=== PATIENT | female | born 1990 | race Two or more races ===

== ENCOUNTER 2022-09-21 12:39 | Outpatient (CLI) | payer OTHER | END 2022-09-21 13:45 | disposition home or self-care (01) | LOC: PRENATAL 12:39 | PROVIDERS: ATTEND Obstetrics & Gynecology Maternal & Fetal Medicine | DX: O36.80X0 Pregnancy with inconclusive fetal viability, not applicable or unspecified (principal); Z36 Encounter for antenatal screening of mother; Z3A.13 13 weeks gestation of pregnancy ==

== ENCOUNTER 2022-11-30 14:30 | Outpatient (CLI) | payer OTHER | END 2022-11-30 16:25 | disposition home or self-care (01) | LOC: PRENATAL 14:30 | PROVIDERS: ATTEND Obstetrics & Gynecology Maternal & Fetal Medicine | DX: O35.9XX0 Maternal care for (suspected) fetal abnormality and damage, unspecified, not applicable or unspecified (principal); O35.3XX0 Maternal care for (suspected) damage to fetus from viral disease in mother, not applicable or unspecified; Z3A.23 23 weeks gestation of pregnancy ==

== ENCOUNTER 2023-02-01 14:17 | Outpatient (CLI) | payer OTHER | END 2023-02-01 15:20 | disposition home or self-care (01) | LOC: PRENATAL 14:17 | PROVIDERS: ATTEND Obstetrics & Gynecology Maternal & Fetal Medicine | DX: O26.849 Uterine size-date discrepancy, unspecified trimester (principal); O36.8199 Decreased fetal movements, unspecified trimester, other fetus; Z3A.32 32 weeks gestation of pregnancy ==

== ENCOUNTER 2023-03-07 14:15 | Inpatient (IN) | payer OTHER ==
[~2023-03-07] VITALS: Ht 162.6 cm; Wt 3.2 kg
[2023-03-07] MEDS ORDERED: PRENATAL TABLE1 EAC1 PO (15:43)
[2023-03-12] MEDS ORDERED: IBU800 MG PO (12:51)
[2023-03-12] MEDS ORDERED: SURFAK240 M1 PO (12:51)
== END 2023-03-12 13:30 | disposition home or self-care (01) | DRG 787 ==
LOC: OBS/DEL 14:15 → LDR 03-08 09:41 → O/R 03-09 12:35 → OB/GYN 03-09 14:12
PROVIDERS: Obstetrics & Gynecology; ADMIT Student in an Organized Health Care Education/Training Program; ATTEND Student in an Organized Health Care Education/Training Program
PROC: 3E0P7VZ Introduction of Hormone into Female Reproductive, Via Natural or Artificial Opening (ICD-10-PCS; 2023-03-08)
PROC: 4A1HXCZ Monitoring of Products of Conception, Cardiac Rate, External Approach (ICD-10-PCS; 2023-03-08)
PROC: 3E033VJ Introduction of Other Hormone into Peripheral Vein, Percutaneous Approach (ICD-10-PCS; 2023-03-09)
PROC: 10D00Z1 Extraction of Products of Conception, Low, Open Approach (ICD-10-PCS; principal; 2023-03-09 11:00)
DX: O69.0XX0 Labor and delivery complicated by prolapse of cord, not applicable or unspecified (principal); O41.03X0 Oligohydramnios, third trimester, not applicable or unspecified; Z3A.37 37 weeks gestation of pregnancy; Z37.0 Single live birth; Z20.822 Contact with and (suspected) exposure to COVID-19

== ENCOUNTER 2023-09-10 08:17 | Outpatient (CLI) | payer OTHER ==
[~2023-09-10 08:17] MED LIST: IBU800 MG PO; PRENATAL TABLE1 EAC1 PO; SURFAK240 M1 PO
== END 2023-09-10 08:18 | disposition home or self-care (01) ==
LOC: PRENATAL 08:17
PROVIDERS: ATTEND Obstetrics & Gynecology Maternal & Fetal Medicine
DX: O36.80X0 Pregnancy with inconclusive fetal viability, not applicable or unspecified (principal); Z36.82 Encounter for antenatal screening for nuchal translucency; Z3A.11 11 weeks gestation of pregnancy

== ENCOUNTER 2023-11-09 07:54 | Outpatient (CLI) | payer OTHER | END 2023-11-09 07:56 | disposition home or self-care (01) | LOC: PRENATAL 07:54 | PROVIDERS: ATTEND Obstetrics & Gynecology Maternal & Fetal Medicine | DX: O35.3XX0 Maternal care for (suspected) damage to fetus from viral disease in mother, not applicable or unspecified (principal); O44.00 Complete placenta previa NOS or without hemorrhage, unspecified trimester; O34.219 Maternal care for unspecified type scar from previous cesarean delivery; Z3A.20 20 weeks gestation of pregnancy ==

== ENCOUNTER → 2024-01-30 08:47 | Outpatient (CLI) | payer OTHER | END | disposition home or self-care (01) | LOC: PRENATAL 08:47 | PROVIDERS: ATTEND Obstetrics & Gynecology Maternal & Fetal Medicine | DX: O26.843 Uterine size-date discrepancy, third trimester (principal); O36.8130 Decreased fetal movements, third trimester, not applicable or unspecified; O34.219 Maternal care for unspecified type scar from previous cesarean delivery; Z3A.32 32 weeks gestation of pregnancy ==

== ENCOUNTER 2024-03-05 11:45 | Inpatient (IN) | payer OTHER ==
[~2024-03-05] VITALS: Ht 162.6 cm; Wt 3.2 kg
[2024-03-11 12:15] LABS: HEMATOCRIT 34.3 % (36.0-45.00); HEMOGLOBIN 11.8 g/dL (12.0-15.00); MEAN CELL VOLUME 82.3 fL (80.00-100.00); MEAN CORPUSCULAR HEMOGLOBIN 28.3 pg (27.00-32.0); MEAN CORPUSCULAR HGB CONC 34.4 g/dl (32.0-36.0); PLATELET COUNT 289 K/uL (150-450); RED BLOOD COUNT 4.17 M/uL (4.00-6.00); RED CELL DISTRIBUTION WIDTH 15.9 % (11.5-14.5)
[2024-03-11 12:42] LABS: INR 0.94; PARTIAL THROMBOPLASTIN TIME 28.3 SECONDS (22.0-34.0); PROTHROMBIN TIME 10.3 SECONDS (9.0-11.5)
[2024-03-11 13:08] LABS: PH,URINE 6.5 (5.0-8.0); URINE APPEARANCE Clear; URINE BILIRRUBIN Negative (NEGATIVE); URINE BLOOD Trace; URINE COLOR Yellow; URINE GLUCOSE Negative (NEGATIVE); URINE KETONE 15 (NEGATIVE); URINE LEUKOCYTE Small; URINE NITRATE Negative; URINE PROTEIN Negative (NEGATIVE); URINE UROBILINOGEN 0.2 E.U./dl
[2024-03-11 13:14] LABS: URINE BACTERIA 366.6 uL (0.0-1933); URINE EPITHELIAL CELLS 28.7 uL (0.0-38.8); URINE RBC 12.9 uL (0.0-20.8); URINE WBC 39.7 uL (0.0-23.2)
[2024-03-11 13:20] LABS: ALBUMIN 2.8 gm/dL (3.4-5.0); BILIRUBIN TOTAL 0.35 mg/dL (0.3-1.2); CALCIUM 9.2 mg/dL (8.5-10.1); CREATININE SERUM 0.58 mg/dL (0.55-1.02); GFR 119.72; GLOBULINA 3.5 G/DL (2.4-3.5); POTASSIUM 3.87 mEq/L (3.5-5.1); TOTAL PROTEIN 6.3 gm/dL (6.4-8.2)
[2024-03-13] MEDS ORDERED: CEFAZOLIN SODIUM 1,000 MG VIAL ONE (16:07)
[2024-03-13] MEDS ORDERED: ERYTHROMYCIN BASE 1 GM TUBE OP ONE (16:13)
[2024-03-13] MEDS ORDERED: OXYTOCIN 10 UNITS/ML VIAL ONE ×2 (16:13→22:57)
[2024-03-13] MEDS ORDERED: CEFAZOLIN SODIUM 1,000 MG VIAL IV SCH (16:15)
[2024-03-13] MEDS ORDERED: KETOROLAC TROMETHAMINE 30 MG VIAL IV PRN (17:45)
[2024-03-13] MEDS ORDERED: MEPERIDINE HCL/PF 25 MG/ML VIAL IV PRN (17:45)
[2024-03-13] MEDS ORDERED: PROMETHAZINE HCL 25 MG/ML AMPUL IV PRN (17:45)
[2024-03-13] MEDS ORDERED: OXYTOCIN 1,000 ML IV SCH (17:45)
[2024-03-13] MEDS ORDERED: PROMETHAZINE HCL 25 MG/ML AMPUL ONE (21:31)
[2024-03-14 01:11] LABS: HEMATOCRIT 35.5 % (36.0-45.00); MEAN CELL VOLUME 82.2 fL (80.00-100.00); MEAN CORPUSCULAR HEMOGLOBIN 27.7 pg (27.00-32.0); MEAN CORPUSCULAR HGB CONC 33.7 g/dl (32.0-36.0); PLATELET COUNT 237 K/uL (150-450); RED BLOOD COUNT 4.32 M/uL (4.00-6.00); RED CELL DISTRIBUTION WIDTH 15.9 % (11.5-14.5)
[2024-03-14] MEDS ORDERED: PROMETHAZINE HCL 25 MG/ML AMPUL ONE (01:42)
[2024-03-14] MEDS ORDERED: IBUprofen 800 MG TABLET PO PRN (07:00)
[2024-03-14] MEDS ORDERED: OxyCODONE HCL/APAP UD (PERCOCET) PO PRN (07:00)
[2024-03-14] MEDS ORDERED: DOCUSATE SODIUM 100MG CAP PO SCH (09:00)
[2024-03-14] MEDS ORDERED: SIMETHICONE 125 MG CAPSULE PO SCH (09:00)
[2024-03-14] MEDS ORDERED: ONDANSETRON 4 MG TAB.RAPDIS PO PRN (11:00)
== END 2024-03-15 18:06 | disposition home or self-care (01) | DRG 785 ==
LOC: OB/GYN 03-11 09:45 → LDR 03-13 10:29 → O/R 03-13 18:51 → OB/GYN 03-13 19:00
PROVIDERS: ADMIT Student in an Organized Health Care Education/Training Program; ATTEND Student in an Organized Health Care Education/Training Program
PROC: 0UB70ZZ Excision of Bilateral Fallopian Tubes, Open Approach (ICD-10-PCS; 2024-03-13)
PROC: 4A1HXCZ Monitoring of Products of Conception, Cardiac Rate, External Approach (ICD-10-PCS; 2024-03-13)
PROC: 10D00Z1 Extraction of Products of Conception, Low, Open Approach (ICD-10-PCS; principal; 2024-03-13 16:00)
DX: O34.211 Maternal care for low transverse scar from previous cesarean delivery (principal); O99.824 Streptococcus B carrier state complicating childbirth; Z30.2 Encounter for sterilization; Z3A.38 38 weeks gestation of pregnancy; Z37.0 Single live birth; Z20.822 Contact with and (suspected) exposure to COVID-19

== ENCOUNTER 2024-03-13 09:22 | Outpatient (CLI) | payer OTHER ==
[2024-03-13 08:44] VITALS: BP 124/81
[2024-03-13] MEDS ORDERED: RINGERS SOLUTION,LACTATED 1,000 ML IV SCH (09:45)
== END 2024-03-13 10:27 | disposition still patient (30) ==
LOC: OBS/DEL 09:22
PROVIDERS: ATTEND Student in an Organized Health Care Education/Training Program
DX: Z34.83 Encounter for supervision of other normal pregnancy, third trimester (principal)